=== PATIENT | male | born 1960 | race African-American/Black ===

== ENCOUNTER 2017-01-31 14:17 | Inpatient (IN) | payer OTHER ==
[~2017-01-31] VITALS: Ht 180.3 cm; Wt 110.3 kg
[2017-01-31 15:54] VITALS: BP 135/86
[2017-01-31] MEDS ORDERED: SILD100T PO (16:39)
[2017-01-31] MEDS ORDERED: IBUP-1007 PO (16:39)
[2017-01-31] MEDS ORDERED: ALLO100T PO (16:39)
[2017-01-31] MEDS ORDERED: HYDR25TA9 PO (16:39)
[2017-01-31] MEDS ORDERED: FURO40TA4 PO (16:39)
[2017-01-31] MEDS ORDERED: AMLO10TA2 PO (16:39)
[2017-01-31] MEDS ORDERED: LIDO30CR TP (16:39)
[2017-01-31] MEDS ORDERED: METH-37 PO (16:39)
[2017-01-31] MEDS ORDERED: BUDE10.2 IH (16:39)
[2017-01-31] MEDS ORDERED: POLY255P PO (16:39)
[2017-01-31] MEDS ORDERED: POTA20TA82 PO (16:39)
[2017-01-31] MEDS ORDERED: CALC500T PO (16:39)
[2017-01-31] MEDS ORDERED: NICO-479 BC (16:39)
[2017-01-31] MEDS ORDERED: CETI10TA16 PO (16:39)
[2017-01-31] MEDS ORDERED: DOCU100C28 PO (16:39)
[2017-01-31] MEDS ORDERED: SIMV40TA3 PO (16:39)
[2017-01-31] MEDS ORDERED: METO200T3 PO (16:39)
[2017-01-31] MEDS ORDERED: MULT-208 PO (16:39)
[2017-01-31] MEDS ORDERED: NICO1PAT25 TP (16:39)
[2017-01-31] MEDS ORDERED: SENN8.6T99 PO (16:39)
[2017-01-31] MEDS ORDERED: LEVO100T5 PO (16:39)
[2017-01-31] MEDS ORDERED: RISP2TAB3 PO (16:39)
--- NOTE | 2017-01-31 16:39 | PDOC1 ---
History and Physical Date of Admission Date of Admission DATE: 01/31/17 TIME: 16:37 Identification/Chief Complaint Chief Complaint chest pain Problems: Source Source: Chart review, Patient History of Present Illness History of Present Illness patient was transferred here from the [facility] emergency room. He was there for chest pain, worsening mid sternal chest pain with pressure. pain here He has some known prior CAD, reported 60% LAD lesion in 2008, and echo from 2014 showed and EF of 30% pain better with narcotic meds, nitro given, trop 0.04 there, and potassium was low at 3.0, then 3.2 on recheck, transfer for CV eval, consider stress test he is 40% service [facility], PTSD and joint pain Past Medical History Past Medical History thalassemia, NOS Cardiovascular: CAD, HTN Pulmonary: No pertinent hx GI: No pertinent hx Musculoskeletal: low back pain Rheumatologic: No pertinent hx Infectious disease: No pertinent hx ENT: No pertinent hx Renal/: No pertinent hx Endocrine: No pertinent hx Dermatology: No pertinent hx Family History Family History: Chronic Bronchitis Social History Smoke: 1 pack per day ALCOHOL: rare Current Medications Current Medications Current Medications Morphine Sulfate 4 mg PRN Q2HR PRN IV PAIN; Start 01/31/17 at 16:45; Status UNV Morphine Sulfate (Morphine Ir) 15 mg Q4HRS PRN PO PAIN; Start 01/31/17 at 16:45 ; Status UNV Nitroglycerin (Nitrostat) 0.4 mg PRN Q5MIN PRN SL CHEST PAIN; Start 01/31/17 at 16:45; Status UNV Famotidine (Pepcid) 20 mg BID PO ; Start 01/31/17 at 21:00; Status UNV Aspirin (Tomas Aspirin) 325 mg DAILYWBKFT PO ; Start 02/01/17 at 08:00; Status UNV Enoxaparin Sodium (Lovenox Per Pharmacy Prophylaxis Dosing) 1 each PRN DAILY PRN MC SEE COMMENTS; Start 01/31/17 at 16:45; Status UNV Ondansetron HCl (Zofran Odt) 4 mg PRN Q8HRS PRN PO NAUSEA/VOMITING; Start 01/31 at 16:45; Status UNV Allergies Allergies: Coded Allergies: ceftriaxone (Verified Allergy, Intermediate, 01/31/17) ROS General: No: Chills, Night Sweats, Fatigue, Malaise, Appetite, Other PSYCHOLOGICAL ROS: No: Anxiety, Behavioral Disorder, Concentration difficultie , Decreased libido, Depression, Disorientation, Hallucinations, Hostility, Irritablity, Memory difficulties, Mood Swings, Obsessive thoughts, Physical abuse, Sexual abuse, Sleep disturbances, Suicidal ideation, Other Eyes: No Blurry vision, No Decreased vision, No Double vision, No Dry eyes, No Excessive tearing, No Eye Pain, No Itchy Eyes, No Loss of vision, No Photophobia , No Scotomata, No Uses contacts, No Uses glasses, No Other HEENT: No: Heacaches, Visual Changes, Hearing change, Nasal congestion, Nasal discharge, Oral lesions, Sinus pain, Sore Throat, Epistaxis, Sneezing, Snoring, Tinnitus, Vertigo, Vocal changes, Other Respiratory: YES: Cough, No: Hemoptysis, Orthopnea, Pleuritic Pain, Shortness of breath, SOB with excertion, Sputum Changes, Stridor, Tachypnea, Wheezing, Other Cardiovascular: yes Chest Pain, No Palpitations, No Orthopnea, No Paroxysmal Noc. Dyspnea, No Edema, No Lt Headedness, No Other Gastrointestinal: Yes Abdominal Pain, No Nausea, No Vomiting, No Diarrhea, No Constipation, No Melena, No Hematochezia, No Other Genitourinary: No Dysuria, No Frequency, No Incontinence, No Hematuria, No Retention, No Discharge, No Urgency, No Pain, No Flank Pain, No Other, No , No , No , No , No , No , No Musculoskeletal: Yes Joint Pain, Yes Joint Stiffness, No Gait Disturbance, No Joint Swelling, No Muscle Pain, No Muscular Weakness , No Pain In:, No Swelling In:, No Other Neurological: Yes Gait Disturbance, No Behavorial Changes, No Bowel/Bladder ControlChng, No Confusion, No Dizziness, No Headaches, No Impaired Coord/balance, No Memory Loss, No Numbness/ Tingling, No Seizures, No Speech Problems, No Tremors, No Visual Changes, No Weakness, No Other Skin: No Dry Skin, No Eczema, No Hair Changes, No Lumps, No Mole Changes, No Mottling, No Nail Changes, No Pruritus, No Rash, No Skin Lesion Changes, No Other, No Acne Physical Exam Physical Exam reproducible chest pain to right sternal, "that is the pain" General: Alert, Oriented X3, Cooperative, No acute distress HEENT: Atraumatic, PERRLA, EOMI, Mucous membr. moist/pink Lungs: Clear to auscultation, Normal air movement Heart: S1S2, no gallops, no murmurs Abdomen: Normal bowel sounds, Soft Extremities: No clubbing, No edema, Normal pulses Skin: No breakdown, No significant lesion Neuro: Normal gait, Normal speech, Normal tone, Sensation intact, Cranial nerves 3-12 NL Psych/Mental Status: Mental status NL, Mood NL Vitals Vitals Vital Signs Date Time Temp Pulse Resp B/P (MAP) Pulse Ox O2 Delivery O2 Flow Rate FiO2 01/31/17 15:54 98.2 71 18 135/86 (102) 97 Room Air 98.2 VTE Prophylaxis Ordered VTE Prophylaxis Devices: No VTE Pharmacological Prophylaxi: Yes Assessment/Plan Assessment/Plan chest pain, reproducible, costochondritis, try lidoderm patch the ER doctor at [facility] told me that Mr. Paniagua had extensive cardiac history of EF 30% and LAD 60% blocked from prior , Mr. Paniagua remembers those tests run, but cannot recall those results tobaccoism, obesity, BMI 32 thalassemia, microcytosis w/o anemia ZUHAIR ROSENBERG MD Jan 31, 2017 16:39
[2017-01-31] MEDS ORDERED: ONDANSETRON ODT 4 MG TAB.RAPDIS. PO PRN (16:45)
[2017-01-31] MEDS ORDERED: NITROGLYCERIN SUBLINGUAL 0.4 MG BOTTLE OF 25. SL PRN (16:45)
[2017-01-31] MEDS ORDERED: MORPHINE SULFATE 4 MG/ML DISP.SYRIN. IV PRN (16:45)
[2017-01-31 17:33] LABS: BASO # 0.1 x10^3/uL (0.0-0.2); BASO % 1 % (0-3); EOS % 4 % (0-3); HEMATOCRIT 44.2 % (39.0-53.0); HEMOGLOBIN 14.5 g/dL (13.0-17.5); LYMPH # 2.2 x10^3/uL (1.0-4.8); LYMPH % 34 % (24-48); MEAN CORPUSCULAR HEMOGLOBIN 24 pg (25-35); MEAN CORPUSCULAR HGB CONC 33 g/dL (31-37); MEAN CORPUSCULAR VOLUME 73 fL (79-100); MONO % 7 % (0-9); NEUT % 53 % (31-73); PLATELET COUNT 205 x10^3/uL (140-400); RED BLOOD COUNT 6.05 x10^6/uL (4.30-5.70); RED CELL DISTRIBUTION WIDTH 15.4 % (11.5-14.5); WHITE BLOOD COUNT 6.3 x10^3/uL (4.0-11.0)
[2017-01-31] MEDS ORDERED: HEPARIN for IV BOLUS 10,000 UNIT/10 ML VIAL. IV PRN (17:45)
[2017-01-31] MEDS ORDERED: HEPARIN 25,000UTS/500ML PREMIX 500 ML IV PRN (17:45)
[2017-01-31 17:52] LABS: CALCIUM 9.2 mg/dL (8.5-10.1); CREATININE 1.2 mg/dL (0.7-1.3); POTASSIUM 3.5 mmol/L (3.5-5.1)
[2017-01-31 19:28] VITALS: BP 138/83
[2017-01-31] MEDS ORDERED: ANTI-COAG MONITOR BY PHARMACY. MC PRN (19:30)
[2017-01-31] MEDS ORDERED: METOPROLOL TART IMMED RELEASE 50 MG TABLET. PO SCH (21:00)
[2017-01-31] MEDS: amLODIPine BESYLATE 5 MG TABLET PO SCH (21:13)
[2017-01-31] MEDS: FAMOTIDINE 20 MG TABLET. PO SCH (21:13)
[2017-01-31] MEDS ORDERED: NICOTINE POLACRILEX 2MG GUM PACKAGE of 12. BC PRN (21:15)
[2017-01-31] MEDS ORDERED: NICOTINE 21MG PATCH. TD PRN (21:15)
[2017-01-31] MEDS: LIDOCAINE (700MG/PATCH) PATCH. TD SCH (21:34)
[2017-01-31] MEDS ORDERED: POTASSIUM CHLORIDE 20 MEQ TABLET.ER. PO ONE (22:00)
[2017-01-31 22:38] VITALS: BP 133/83
[2017-02-01 03:08] VITALS: BP 138/96
[2017-02-01 04:46] LABS: BASO # 0.1 x10^3/uL (0.0-0.2); BASO % 1 % (0-3); EOS % 5 % (0-3); HEMATOCRIT 43.3 % (39.0-53.0); HEMOGLOBIN 14.4 g/dL (13.0-17.5); LYMPH # 2.7 x10^3/uL (1.0-4.8); LYMPH % 45 % (24-48); MEAN CORPUSCULAR HEMOGLOBIN 24 pg (25-35); MEAN CORPUSCULAR HGB CONC 33 g/dL (31-37); MEAN CORPUSCULAR VOLUME 73 fL (79-100); MONO % 9 % (0-9); NEUT % 41 % (31-73); PLATELET COUNT 193 x10^3/uL (140-400); RED BLOOD COUNT 5.95 x10^6/uL (4.30-5.70)
[2017-02-01 05:05] LABS: CHOLESTEROL/HDL RATIO 4.8
--- NOTE | 2017-02-01 06:31 | ACF ---
Admission Forms Criteria CHEST PAIN Clinical Indications for Admission to Inpatient Care (Place 'X' for any and all applicable criteria): Admission is indicated for chest pain and ANY ONE of the following(1)(2)(3)(4)(5 ): [ ]I. Angina with acute coronary syndrome (Also use Myocardial Infarction or Angina guideline) [ ]II. Hemodynamic instability [ ]III. Angina needing acute intervention as indicated by ALL of the following( 11)(12): [ ]a) Unstable angina is present as indicated by angina that is ANY ONE of the following: [ ]i) New onset [ ]ii) Nocturnal [ ]iii) Prolonged at rest [ ]iv) Progressive [ ]b) Angina warrants acute intervention as indicated by ANY ONE of the following: [ ]i) Recurrent angina (e.g, not responding as previously to treatment) [ ]ii) Angina at rest or with low-level activities despite initial medical therapy [ ]iii) New or presumably new ST-segment depression on ECG [ ]iv) Signs or symptoms of heart failure (eg, dyspnea, pulmonary edema) [ ]v) New or worsening mitral regurgitation [ ]vi) Hemodynamic instability [ ]vii) Dangerous arrhythmia (eg, sustained ventricular tachycardia) [ ]viii) History of percutaneous coronary intervention within 6 months [ ]ix) History of coronary artery bypass graft surgery [ ]x) BEBETO risk score of 2 or greater[A] [ ]xi) History of Diabetes(14) [ ]xii) High-risk cardiac ischemia findings on noninvasive testing (e.g, echocardiogram, treadmill testing, nuclear scan) [ ]xiii) Chronic renal insufficiency (ie, estimated GFR less than 60 mL/min/1.732m) [ ]xiv) Left ventricular ejection fraction less than 40% [ ]IV. Evidence of NC (eg, cardiac biomarkers positive, ST-segment elevation on ECG) also use Myocardial Infarction Criteria Form. [ ]V. Pulmonary edema [ ]. Respiratory distress [ ]VII. Chest pain indicative of serious diagnosis other than coronary artery disease (eg, aortic dissection) [ ]VIII. Contraindications and/or Inappropriate clinical situations for Observational Care in patients with Chest Pain, when ANY ONE of the following is required: [ ]a) Patient with risk factor for pulmonary embolism, acute coronary syndrome and myocardial infarction (18) [ ]b) Patient with Pulmonary embolism require an average LOS of 4.3 days, therefore emergency department observation management is inappropriate 18,23 [ ]c) Painful condition/s in the elderly, have the highest rate of recidivism after emergency department observation management (10.8%) 20,21,22 [ ]d) Elevated cardiac biomarker requires intensive and exhaustive care (19) [X]IX. General contraindications and/or Inappropriate clinical situations for Observational Care in patients with Chest Pain, when ANY ONE of the following is required: [X]a) Prediction of prolongation of LOS based on ANY ONE of the following may be considered as a contraindication for observational care 2, 3, 4, 5, 6, 7, 8, 9, 10, 11 [ ]i) Age > 65 yrs. [ ]ii) Patient arriving by ambulance [ ]iii) Patient with high acuity [X]iv) Patient requiring vital sign monitoring [ ]v) Patient on IV medication [ ]b) Systolic blood pressures 180mmHg 3,12 [ ]c) Patient with altered mental status including delirium and other alteration of consciousness, (3) [ ]d) Patient whose discharge disposition will be to a correction home or rehabilitation home should not be managed in Emergency Department Observation Unit. CMS rule requires 3 days hospital stay before such placement. 3,13 [ ]e) Patient with failure to thrive due to broad array of etiologies 3,16,17 [ ]f) Inability to ambulate 3,14 Extended stay beyond goal length of stay may be needed for (1)(28): [ ]a) Specific condition diagnosed after evaluation (eg, pulmonary embolism, aortic dissection) [ ]b) Unstable angina [ ]c) Continued suspicion of acute coronary syndrome with inability to complete needed cardiac evaluation (eg, patient clinically unable to undergo stress testing) [ ]d) Myocardial infarction (Contents from ANGINA and CHEST PAIN clinical indications for admission to inpatient care have been integrated in this form) The original [facility] content created by [employer] has been revised. The portions of the content which have been revised are identified through the use of italic text or in bold, and [facility] has neither reviewed nor approved the modified material. All other unmodified content is copyright [facility]. Please see references footnoted in the original [facility] edition 2016 Admission Criteria Met?: Yes MADAI DUNN Feb 01, 2017 06:30
[2017-02-01 07:00] VITALS: BP 134/91
[2017-02-01] MEDS: FAMOTIDINE 20 MG TABLET. PO SCH ×2 (08:39→22:24)
[2017-02-01] MEDS: ASPIRIN 325 MG TABLET PO SCH (08:39)
[2017-02-01] MEDS: amLODIPine BESYLATE 5 MG TABLET PO SCH (08:40)
[2017-02-01] MEDS: LIDOCAINE (700MG/PATCH) PATCH. TD SCH ×2 (08:41→22:24)
[2017-02-01] MEDS ORDERED: ENOXAPARIN 40 MG/0.4 ML SYRINGE. SQ SCH (09:00)
--- NOTE | 2017-02-01 09:51 | PDOC2 ---
CARDIAC CONSULT DATE OF CONSULT Date of Consult DATE: 02/01/17 TIME: 09:49 REASON FOR CONSULT Reason for Consult: angina REFERRING PHYSICIAN Referring Physician: Jovany SOURCE Source: Chart review, Patient HISTORY OF PRESENT ILLNESS HISTORY OF PRESENT ILLNESS This is a pleasant 57 yo AA male admitted for complains of chest pain. Initially he was at the [facility] ED but because they could not placed him inpt, he was then transferred to [facility]. Reports that prior to this admission, he has not been having any cardiac symptoms. He does work with [employer] requiring strenuous exertion. No OAKES, CP, SOA till yesterday. This lasted about 3 hours before getting better with the help of NTG x1. Positive for chest tightness, nausea, and SOA which he currently does not have and no recurrence since alleviation at the [facility]. He does admit using cocaine, smoking it with last use yesterday. He is known for cardiomyopathy, CHF, polysubstance abuse. PAST MEDICAL HISTORY Cardiovascular: CAD, CHF, HTN, Hyperlipidemia, Other (cardiomyopathy) Pulmonary: COPD CENTRAL NERVOUS SYSTEM: CVA (remotely; no residual) GI: GERD, Hemorrhoids, Other (rectal fistula; IBS) Psych: Anxiety, Depression, Other (PTSD) Musculoskeletal: low back pain, Osteoarthritis Rheumatologic: No pertinent hx Infectious disease: No pertinent hx ENT: No pertinent hx Renal/: Chronic renal insuff Endocrine: Hypothyroidism Dermatology: No pertinent hx PAST SURGICAL HISTORY Past Surgical History: Hernia Repair (right inguinal), Total hip replacement ( right), Other ([facility] bewtween 2-5 yrs unknown details) FAMILY HISTORY Family History: Hypertension SOCIAL HISTORY Smoke: 1 pack per day (>30 yrs) ALCOHOL: occassional Drugs: Cocaine, Marijuana Lives: Alone CURRENT MEDICATIONS CURRENT MEDICATIONS Current Medications Medications (Trade) Dose Ordered Sig/Eliana Route PRN Reason Start Time Stop Time Status Last Admin Dose Admin Famotidine (Pepcid) 20 mg BID PO 01/31/17 21:00 02/01/17 08:39 Aspirin (Tomas Aspirin) 325 mg DAILYWBKFT PO 02/01/17 08:00 02/01/17 08:39 Amlodipine Besylate (Norvasc) 5 mg DAILY PO 01/31/17 19:00 02/01/17 08:40 Metoprolol Tartrate (Lopressor) 50 mg BID PO 01/31/17 21:00 01/31/17 21:13 Heparin Sodium (Porcine) (Heparin Sodium) 2,700 unit PRN Q6HRS PRN IV FOR UFH LEVEL LESS THAN 0.2 01/31/17 17:45 02/01/17 05:18 Lidocaine (Lidoderm) 1 patch DAILY TD 01/31/17 21:30 02/01/17 08:41 Potassium Chloride (Klor-Con) 20 meq 1X ONCE PO 01/31/17 22:00 01/31/17 22:01 DC 01/31/17 21:33 ALLERGIES ALLERGIES: Coded Allergies: ceftriaxone (Verified Allergy, Intermediate, 01/31/17) ROS Review of System 14 point ROS evaluated with pertinent positives noted per HPI PHYSICAL EXAM General: Alert, Oriented X3, Cooperative Heart: Regular rate (SR/SB), Normal S1, Normal S2, Other (3/6 systolic murmur to LLS border;S4) Abdomen: Soft, No tenderness Extremities: No cyanosis, No edema Skin: No breakdown, No significant lesion Neuro: Normal speech, Sensation intact Psych/Mental Status: Mental status NL, Mood NL MUSCULOSKELETAL: Osteoarthritic changes both hands VITALS VITALS Vital Signs Date Time Temp Pulse Resp B/P (MAP) Pulse Ox O2 Delivery O2 Flow Rate FiO2 02/01/17 08:40 59 134/91 02/01/17 08:10 Room Air 02/01/17 07:00 97.8 59 95 97.8 LABS Lab: Laboratory Tests Test 01/31/17 17:10 02/01/17 03:40 White Blood Count 6.3 x10^3/uL (4.0-11.0) 6.0 x10^3/uL (4.0-11.0) Red Blood Count 6.05 x10^6/uL (4.30-5.70) 5.95 x10^6/uL (4.30-5.70) Hemoglobin 14.5 g/dL (13.0-17.5) 14.4 g/dL (13.0-17.5) Hematocrit 44.2 % (39.0-53.0) 43.3 % (39.0-53.0) Mean Corpuscular Volume 73 fL (79-100) 73 fL (79-100) Mean Corpuscular Hemoglobin 24 pg (25-35) 24 pg (25-35) Mean Corpuscular Hemoglobin Concent 33 g/dL (31-37) 33 g/dL (31-37) Red Cell Distribution Width 15.4 % (11.5-14.5) 16.0 % (11.5-14.5) Platelet Count 205 x10^3/uL (140-400) 193 x10^3/uL (140-400) Neutrophils (%) (Auto) 53 % (31-73) 41 % (31-73) Lymphocytes (%) (Auto) 34 % (24-48) 45 % (24-48) Monocytes (%) (Auto) 7 % (0-9) 9 % (0-9) Eosinophils (%) (Auto) 4 % (0-3) 5 % (0-3) Basophils (%) (Auto) 1 % (0-3) 1 % (0-3) Neutrophils # (Auto) 3.4 x10^3uL (1.8-7.7) 2.5 x10^3uL (1.8-7.7) Lymphocytes # (Auto) 2.2 x10^3/uL (1.0-4.8) 2.7 x10^3/uL (1.0-4.8) Monocytes # (Auto) 0.5 x10^3/uL (0.0-1.1) 0.5 x10^3/uL (0.0-1.1) Eosinophils # (Auto) 0.3 x10^3/uL (0.0-0.7) 0.3 x10^3/uL (0.0-0.7) Basophils # (Auto) 0.1 x10^3/uL (0.0-0.2) 0.1 x10^3/uL (0.0-0.2) Sodium Level 144 mmol/L (136-145) 144 mmol/L (136-145) Potassium Level 3.5 mmol/L (3.5-5.1) 3.5 mmol/L (3.5-5.1) Chloride Level 106 mmol/L (98-107) 106 mmol/L (98-107) Carbon Dioxide Level 29 mmol/L (21-32) 28 mmol/L (21-32) Anion Gap 9 (6-14) 10 (6-14) Blood Urea Nitrogen 15 mg/dL (8-26) 17 mg/dL (8-26) Creatinine 1.2 mg/dL (0.7-1.3) 1.3 mg/dL (0.7-1.3) Estimated GFR (Cockcroft-Gault) 75.0 68.4 Glucose Level 105 mg/dL (70-99) 94 mg/dL (70-99) Calcium Level 9.2 mg/dL (8.5-10.1) 9.0 mg/dL (8.5-10.1) Magnesium Level 2.1 mg/dL (1.8-2.4) Troponin I Quantitative < 0.017 ng/mL (0.000-0.055) 0.027 ng/mL (0.000-0.055) Heparin Anti-Xa Act, Unfractionated < 0.10 IU/mL (0.30-0.70) Triglycerides Level 55 mg/dL (0-150) Cholesterol Level 162 mg/dL (0-200) LDL Cholesterol, Calculated 117 mg/dL (0-100) VLDL Cholesterol, Calculated 11 mg/dL (0-40) Non-HDL Cholesterol Calculated 128 mg/dL (0-129) HDL Cholesterol 34 mg/dL (40-60) Cholesterol/HDL Ratio 4.8 ASSESSMENT/PLAN ASSESSMENT/PLAN 1. Chest pain: Possible vasopasm from cocaine. troponin series normal, EKG SR with diffuse nonspecific t wave changes. Peaked trop 0.04 2. Chronic systolic CHF: compensated 3. Cardiomyopathy: (not new) likely worsened by continued cocaine use 4. Polysubstance abuse: marijuana with daily use of cocaine with last use yesterday. Per review multiple relapse from this. 5. Polycythemia 6. HLP 7. HTN: controlled 8. COPD/tobaccoism/KAYLA 9. CAD 10. Asymptomatic Sinus Bradycardia 11. Valvular insufficiency Recommendations 1. Abstinence from cocaine 2. No BB 3. TTE 4. Obtain cardiology records 5. Norvasc, imdur. Will need ACEi ot ARB pending BP response. 6. Will consider MPI in 24-48 hours after cardiology records reviewed Problems: ALEN ALBRECHT APRN Feb 01, 2017 09:51
[2017-02-01 11:00] VITALS: BP 157/111
--- NOTE | 2017-02-01 11:00 | EKG ---
[facility] [address] [place] [address] Test Date: 2017-02-01 Test Time: 10:15:46 Pat Name: PARKER ABDALLA Department: Room: 205 1 Gender: M [employer]: : 1960 Requested By: ALEN ALBRECHT Order Number: [id number] Reading MD: Measurements Intervals [place] Rate: 60 P: 0 SD: 208 QRS: -46 QRSD: 100 T: -147 QT: 500 QTc: 505 Interpretive Statements SINUS RHYTHM ABNORMAL LEFT AXIS DEVIATION LEFT ANTERIOR FASCICULAR BLOCK CONSIDER LEFT VENTRICULAR HYPERTROPHY T ABNORMALITY IN ANTERIOR LEADS LATERAL LEADS INFEROLATERAL LEADS PROLONGED QT ABNORMAL ECG RI6.01 No previous ECG available for comparison
[2017-02-01] MEDS: ISOSORBIDE MONONITRATE ER 30 MG TAB.ER.24H PO SCH (11:26)
[2017-02-01 12:38] LABS: ALBUMIN 3.5 g/dL (3.4-5.0); ALBUMIN/GLOBULIN RATIO 1.2 (1.0-1.7); CALCIUM 8.4 mg/dL (8.5-10.1); CREATININE 1.3 mg/dL (0.7-1.3); GFR 68.4; POTASSIUM 3.7 mmol/L (3.5-5.1); TOTAL BILIRUBIN 0.3 mg/dL (0.2-1.0); TOTAL PROTEIN 6.5 g/dL (6.4-8.2)
--- NOTE | 2017-02-01 12:53 | PDOC ---
PROGRESS NOTES Chief Complaint Chief Complaint Chest pain:unstable angina with Possible vasopasm from cocaine ? Known chronic systolic CHF EF 30% 2 years ago Cardiomyopathy Polysubstance abuse: marijuana with daily use of cocaine with last use yesterday. thasassemia HLP accelerated HTN COPD/tobaccoism/KAYLA h/o CAD wo PCI Sinus Bradycardia Valvular insufficiency tobaccoism obesity plan; fu with card, on amlodipine, no BB TTE today may need MPI DVT ppx History of Present Illness History of Present Illness no chest pain today Vitals Vitals Vital Signs Date Time Temp Pulse Resp B/P (MAP) Pulse Ox O2 Delivery O2 Flow Rate FiO2 02/01/17 11:26 60 175/121 02/01/17 11:00 98.0 17 96 Room Air 98.0 Physical Exam General: Alert, Oriented X3, Cooperative, No acute distress Heart: Regular rate, Normal S1, Normal S2 Lungs: Clear Abdomen: Normal bowel sounds, Soft Extremities: No clubbing, No edema, Normal pulses Skin: No breakdown, No significant lesion Labs LABS Laboratory Tests Test 01/31/17 17:10 02/01/17 03:40 White Blood Count 6.3 x10^3/uL (4.0-11.0) 6.0 x10^3/uL (4.0-11.0) Red Blood Count 6.05 x10^6/uL (4.30-5.70) 5.95 x10^6/uL (4.30-5.70) Hemoglobin 14.5 g/dL (13.0-17.5) 14.4 g/dL (13.0-17.5) Hematocrit 44.2 % (39.0-53.0) 43.3 % (39.0-53.0) Mean Corpuscular Volume 73 fL (79-100) 73 fL (79-100) Mean Corpuscular Hemoglobin 24 pg (25-35) 24 pg (25-35) Mean Corpuscular Hemoglobin Concent 33 g/dL (31-37) 33 g/dL (31-37) Red Cell Distribution Width 15.4 % (11.5-14.5) 16.0 % (11.5-14.5) Platelet Count 205 x10^3/uL (140-400) 193 x10^3/uL (140-400) Neutrophils (%) (Auto) 53 % (31-73) 41 % (31-73) Lymphocytes (%) (Auto) 34 % (24-48) 45 % (24-48) Monocytes (%) (Auto) 7 % (0-9) 9 % (0-9) Eosinophils (%) (Auto) 4 % (0-3) 5 % (0-3) Basophils (%) (Auto) 1 % (0-3) 1 % (0-3) Neutrophils # (Auto) 3.4 x10^3uL (1.8-7.7) 2.5 x10^3uL (1.8-7.7) Lymphocytes # (Auto) 2.2 x10^3/uL (1.0-4.8) 2.7 x10^3/uL (1.0-4.8) Monocytes # (Auto) 0.5 x10^3/uL (0.0-1.1) 0.5 x10^3/uL (0.0-1.1) Eosinophils # (Auto) 0.3 x10^3/uL (0.0-0.7) 0.3 x10^3/uL (0.0-0.7) Basophils # (Auto) 0.1 x10^3/uL (0.0-0.2) 0.1 x10^3/uL (0.0-0.2) Sodium Level 144 mmol/L (136-145) 145 mmol/L (136-145) Potassium Level 3.5 mmol/L (3.5-5.1) 3.7 mmol/L (3.5-5.1) Chloride Level 106 mmol/L (98-107) 107 mmol/L (98-107) Carbon Dioxide Level 29 mmol/L (21-32) 27 mmol/L (21-32) Anion Gap 9 (6-14) 11 (6-14) Blood Urea Nitrogen 15 mg/dL (8-26) 19 mg/dL (8-26) Creatinine 1.2 mg/dL (0.7-1.3) 1.3 mg/dL (0.7-1.3) Estimated GFR (Cockcroft-Gault) 75.0 68.4 Glucose Level 105 mg/dL (70-99) 90 mg/dL (70-99) Calcium Level 9.2 mg/dL (8.5-10.1) 8.4 mg/dL (8.5-10.1) Magnesium Level 2.1 mg/dL (1.8-2.4) Troponin I Quantitative < 0.017 ng/mL (0.000-0.055) 0.027 ng/mL (0.000-0.055) Heparin Anti-Xa Act, Unfractionated < 0.10 IU/mL (0.30-0.70) BUN/Creatinine Ratio 15 (6-20) Total Bilirubin 0.3 mg/dL (0.2-1.0) Aspartate Amino Transf (AST/SGOT) 17 U/L (15-37) Alanine Aminotransferase (ALT/SGPT) 17 U/L (16-63) Alkaline Phosphatase 64 U/L (46-116) Total Protein 6.5 g/dL (6.4-8.2) Albumin 3.5 g/dL (3.4-5.0) Albumin/Globulin Ratio 1.2 (1.0-1.7) Triglycerides Level 55 mg/dL (0-150) Cholesterol Level 162 mg/dL (0-200) LDL Cholesterol, Calculated 117 mg/dL (0-100) VLDL Cholesterol, Calculated 11 mg/dL (0-40) Non-HDL Cholesterol Calculated 128 mg/dL (0-129) HDL Cholesterol 34 mg/dL (40-60) Cholesterol/HDL Ratio 4.8 Thyroid Stimulating Hormone (TSH) 2.723 uIU/mL (0.358-3.74) Review of Systems Review of Systems no fever, chills, chest pain or sob Comment Review of Relevant I have reviewed the following items sadia (where applicable) has been applied. Labs Laboratory Tests Test 01/31/17 17:10 02/01/17 03:40 White Blood Count 6.3 x10^3/uL (4.0-11.0) 6.0 x10^3/uL (4.0-11.0) Red Blood Count 6.05 x10^6/uL (4.30-5.70) 5.95 x10^6/uL (4.30-5.70) Hemoglobin 14.5 g/dL (13.0-17.5) 14.4 g/dL (13.0-17.5) Hematocrit 44.2 % (39.0-53.0) 43.3 % (39.0-53.0) Mean Corpuscular Volume 73 fL (79-100) 73 fL (79-100) Mean Corpuscular Hemoglobin 24 pg (25-35) 24 pg (25-35) Mean Corpuscular Hemoglobin Concent 33 g/dL (31-37) 33 g/dL (31-37) Red Cell Distribution Width 15.4 % (11.5-14.5) 16.0 % (11.5-14.5) Platelet Count 205 x10^3/uL (140-400) 193 x10^3/uL (140-400) Neutrophils (%) (Auto) 53 % (31-73) 41 % (31-73) Lymphocytes (%) (Auto) 34 % (24-48) 45 % (24-48) Monocytes (%) (Auto) 7 % (0-9) 9 % (0-9) Eosinophils (%) (Auto) 4 % (0-3) 5 % (0-3) Basophils (%) (Auto) 1 % (0-3) 1 % (0-3) Neutrophils # (Auto) 3.4 x10^3uL (1.8-7.7) 2.5 x10^3uL (1.8-7.7) Lymphocytes # (Auto) 2.2 x10^3/uL (1.0-4.8) 2.7 x10^3/uL (1.0-4.8) Monocytes # (Auto) 0.5 x10^3/uL (0.0-1.1) 0.5 x10^3/uL (0.0-1.1) Eosinophils # (Auto) 0.3 x10^3/uL (0.0-0.7) 0.3 x10^3/uL (0.0-0.7) Basophils # (Auto) 0.1 x10^3/uL (0.0-0.2) 0.1 x10^3/uL (0.0-0.2) Sodium Level 144 mmol/L (136-145) 145 mmol/L (136-145) Potassium Level 3.5 mmol/L (3.5-5.1) 3.7 mmol/L (3.5-5.1) Chloride Level 106 mmol/L (98-107) 107 mmol/L (98-107) Carbon Dioxide Level 29 mmol/L (21-32) 27 mmol/L (21-32) Anion Gap 9 (6-14) 11 (6-14) Blood Urea Nitrogen 15 mg/dL (8-26) 19 mg/dL (8-26) Creatinine 1.2 mg/dL (0.7-1.3) 1.3 mg/dL (0.7-1.3) Estimated GFR (Cockcroft-Gault) 75.0 68.4 Glucose Level 105 mg/dL (70-99) 90 mg/dL (70-99) Calcium Level 9.2 mg/dL (8.5-10.1) 8.4 mg/dL (8.5-10.1) Magnesium Level 2.1 mg/dL (1.8-2.4) Troponin I Quantitative < 0.017 ng/mL (0.000-0.055) 0.027 ng/mL (0.000-0.055) Heparin Anti-Xa Act, Unfractionated < 0.10 IU/mL (0.30-0.70) BUN/Creatinine Ratio 15 (6-20) Total Bilirubin 0.3 mg/dL (0.2-1.0) Aspartate Amino Transf (AST/SGOT) 17 U/L (15-37) Alanine Aminotransferase (ALT/SGPT) 17 U/L (16-63) Alkaline Phosphatase 64 U/L (46-116) Total Protein 6.5 g/dL (6.4-8.2) Albumin 3.5 g/dL (3.4-5.0) Albumin/Globulin Ratio 1.2 (1.0-1.7) Triglycerides Level 55 mg/dL (0-150) Cholesterol Level 162 mg/dL (0-200) LDL Cholesterol, Calculated 117 mg/dL (0-100) VLDL Cholesterol, Calculated 11 mg/dL (0-40) Non-HDL Cholesterol Calculated 128 mg/dL (0-129) HDL Cholesterol 34 mg/dL (40-60) Cholesterol/HDL Ratio 4.8 Thyroid Stimulating Hormone (TSH) 2.723 uIU/mL (0.358-3.74) Laboratory Tests Test 01/31/17 17:10 02/01/17 03:40 White Blood Count 6.3 x10^3/uL (4.0-11.0) 6.0 x10^3/uL (4.0-11.0) Red Blood Count 6.05 x10^6/uL (4.30-5.70) 5.95 x10^6/uL (4.30-5.70) Hemoglobin 14.5 g/dL (13.0-17.5) 14.4 g/dL (13.0-17.5) Hematocrit 44.2 % (39.0-53.0) 43.3 % (39.0-53.0) Mean Corpuscular Volume 73 fL (79-100) 73 fL (79-100) Mean Corpuscular Hemoglobin 24 pg (25-35) 24 pg (25-35) Mean Corpuscular Hemoglobin Concent 33 g/dL (31-37) 33 g/dL (31-37) Red Cell Distribution Width 15.4 % (11.5-14.5) 16.0 % (11.5-14.5) Platelet Count 205 x10^3/uL (140-400) 193 x10^3/uL (140-400) Neutrophils (%) (Auto) 53 % (31-73) 41 % (31-73) Lymphocytes (%) (Auto) 34 % (24-48) 45 % (24-48) Monocytes (%) (Auto) 7 % (0-9) 9 % (0-9) Eosinophils (%) (Auto) 4 % (0-3) 5 % (0-3) Basophils (%) (Auto) 1 % (0-3) 1 % (0-3) Neutrophils # (Auto) 3.4 x10^3uL (1.8-7.7) 2.5 x10^3uL (1.8-7.7) Lymphocytes # (Auto) 2.2 x10^3/uL (1.0-4.8) 2.7 x10^3/uL (1.0-4.8) Monocytes # (Auto) 0.5 x10^3/uL (0.0-1.1) 0.5 x10^3/uL (0.0-1.1) Eosinophils # (Auto) 0.3 x10^3/uL (0.0-0.7) 0.3 x10^3/uL (0.0-0.7) Basophils # (Auto) 0.1 x10^3/uL (0.0-0.2) 0.1 x10^3/uL (0.0-0.2) Sodium Level 144 mmol/L (136-145) 145 mmol/L (136-145) Potassium Level 3.5 mmol/L (3.5-5.1) 3.7 mmol/L (3.5-5.1) Chloride Level 106 mmol/L (98-107) 107 mmol/L (98-107) Carbon Dioxide Level 29 mmol/L (21-32) 27 mmol/L (21-32) Anion Gap 9 (6-14) 11 (6-14) Blood Urea Nitrogen 15 mg/dL (8-26) 19 mg/dL (8-26) Creatinine 1.2 mg/dL (0.7-1.3) 1.3 mg/dL (0.7-1.3) Estimated GFR (Cockcroft-Gault) 75.0 68.4 Glucose Level 105 mg/dL (70-99) 90 mg/dL (70-99) Calcium Level 9.2 mg/dL (8.5-10.1) 8.4 mg/dL (8.5-10.1) Magnesium Level 2.1 mg/dL (1.8-2.4) Troponin I Quantitative < 0.017 ng/mL (0.000-0.055) 0.027 ng/mL (0.000-0.055) Heparin Anti-Xa Act, Unfractionated < 0.10 IU/mL (0.30-0.70) BUN/Creatinine Ratio 15 (6-20) Total Bilirubin 0.3 mg/dL (0.2-1.0) Aspartate Amino Transf (AST/SGOT) 17 U/L (15-37) Alanine Aminotransferase (ALT/SGPT) 17 U/L (16-63) Alkaline Phosphatase 64 U/L (46-116) Total Protein 6.5 g/dL (6.4-8.2) Albumin 3.5 g/dL (3.4-5.0) Albumin/Globulin Ratio 1.2 (1.0-1.7) Triglycerides Level 55 mg/dL (0-150) Cholesterol Level 162 mg/dL (0-200) LDL Cholesterol, Calculated 117 mg/dL (0-100) VLDL Cholesterol, Calculated 11 mg/dL (0-40) Non-HDL Cholesterol Calculated 128 mg/dL (0-129) HDL Cholesterol 34 mg/dL (40-60) Cholesterol/HDL Ratio 4.8 Thyroid Stimulating Hormone (TSH) 2.723 uIU/mL (0.358-3.74) Medications Current Medications Morphine Sulfate 4 mg PRN Q2HR PRN IV PAIN; Start 01/31/17 at 16:45 Morphine Sulfate (Morphine Ir) 15 mg Q4HRS PRN PO PAIN; Start 01/31/17 at 16:45 Nitroglycerin (Nitrostat) 0.4 mg PRN Q5MIN PRN SL CHEST PAIN; Start 01/31/17 at 16:45 Famotidine (Pepcid) 20 mg BID PO Last administered on 02/01/17 08:39; Start at 21:00 Aspirin (Tomas Aspirin) 325 mg DAILYWBKFT PO Last administered on 02/01/17 08: 39; Start 02/01/17 at 08:00 Enoxaparin Sodium (Lovenox Per Pharmacy Prophylaxis Dosing) 1 each PRN DAILY PRN MC SEE COMMENTS; Start 01/31/17 at 16:45; Stop 01/31/17 at 19:21; Status DC Ondansetron HCl (Zofran Odt) 4 mg PRN Q8HRS PRN PO NAUSEA/VOMITING; Start 01/31 at 16:45 Enoxaparin Sodium (Lovenox 40mg Syringe) 40 mg Q24H SQ ; Start 02/01/17 at 09:00 ; Stop 02/01/17 at 09:00; Status DC Amlodipine Besylate (Norvasc) 5 mg DAILY PO Last administered on 02/01/17 08: 40; Start 01/31/17 at 19:00; Stop 02/01/17 at 10:25; Status DC Metoprolol Tartrate (Lopressor) 50 mg BID PO Last administered on 01/31/17 21: 13; Start 01/31/17 at 21:00; Stop 02/01/17 at 10:25; Status DC Heparin Sodium/ Dextrose 500 ml @ 0 mls/hr CONT PRN IV SEE I/O RECORD; Start at 17:45; Stop 02/01/17 at 10:50; Status DC Heparin Sodium (Porcine) (Heparin Sodium) 2,700 unit PRN Q6HRS PRN IV FOR UFH LEVEL LESS THAN 0.2 Last administered on 02/01/17 05:18; Start 01/31/17 at 17: 45; Stop 02/01/17 at 10:50; Status DC Info (Anti-Coagulation Monitoring By Pharmacy) 1 each PRN DAILY PRN MC SEE COMMENTS Last administered on 02/01/17 10:12; Start 01/31/17 at 19:30 Nicotine (Nicoderm Cq 21mg) 1 patch PRN DAILY PRN TD SMOKING CESSATION; Start 01/31/17 at 21:15 Nicotine Polacrilex (Nicorette Gum) 1 each PRN Q1HR PRN BC SMOKING CESSATION; Start 01/31/17 at 21:15 Lidocaine (Lidoderm) 1 patch DAILY TD Last administered on 02/01/17 08:41; Start 01/31/17 at 21:30 Potassium Chloride (Klor-Con) 20 meq 1X ONCE PO Last administered on 21:33; Start 01/31/17 at 22:00; Stop 01/31/17 at 22:01; Status DC Amlodipine Besylate (Norvasc) 10 mg DAILY PO ; Start 02/02/17 at 09:00 Isosorbide Mononitrate (Imdur) 30 mg DAILY PO ; Start 02/02/17 at 09:00; Stop at 09:00; Status DC Isosorbide Mononitrate (Imdur) 30 mg DAILY PO Last administered on 02/01/17 11 :26; Start 02/01/17 at 11:06 Active Scripts Active Reported Calcium Carbonate 500 Mg Tablet 500 Mg PO TIDWMEALS Potassium Chloride 20 Meq Tablet.er 20 Meq PO DAILY NICODERM CQ 14mg (Nicotine) 1 Each Patch.td24 1 Patch TP DAILY Nicotine Lozenge (Nicotine Polacrilex) 2 Mg Lozenge 2 Mg BC PRN Q1HR PRN Multi-Day Vitamins (Multivitamin) 1 Each Tablet 1 Tab PO DAILY Simvastatin 40 Mg Tablet 0.5 Tab PO QHS Viagra (Sildenafil Citrate) 100 Mg Tablet 100 Mg PO ONCE One tablet as directed by mouth as needed for erectile dysfuntion. One hour before sexual encounter. No more than 1 dose per day. No more than 4 doses in 30 days. Senokot (Sennosides) 8.6 Mg Tablet 8.6 Mg PO PRN PRN Risperidone 2 Mg Tablet 1 Tab PO QHS half tablet to 1 tablet at HS, alternating days Polyethylene Glycol 3350 255 Gm Powder 17 Gm PO DAILY Metoprolol Succinate ( Xl ) (Metoprolol Succinate) 200 Mg Tab.er.24h 1 Tab PO DAILY Robaxin (Methocarbamol) 500 Mg Tablet 1 Tab PO PRN TID PRN Lidocaine-Prilocaine Cream (Lidocaine/Prilocaine) 30 Gm Cream..g. 1 Lolis TP TID PRN Levothyroxine Sodium 100 Mcg Tablet 1 Tab PO DAILY Ibuprofen 600 Mg Tablet 600 Mg PO PRN TID PRN Hydrochlorothiazide Tablet (Hydrochlorothiazide) 25 Mg Tablet 1 Tab PO DAILY Furosemide 40 Mg Tablet 1 Tab PO DAILY Docusate Sodium 100 Mg Capsule 1 Cap PO DAILY Cetirizine Hcl 10 Mg Tablet 1 Tab PO DAILY Symbicort 160-4.5 Mcg Inhaler (Budesonide/Formoterol Fumarate) 10.2 Gm Hfa.aer.ad 2 Puff IH BID Amlodipine Besylate 10 Mg Tablet 10 Mg PO DAILY Allopurinol 100 Mg Tablet 2 Tab PO DAILY Vitals/I & O Vital Sign - Last 24 Hours 01/31/17 01/31/17 01/31/17 01/31/17 15:54 19:28 19:30 21:13 Temp 98.2 98.1 98.2 98.1 Pulse 71 73 73 Resp 18 18 B/P (MAP) 135/86 (102) 138/83 (101) 138/83 Pulse Ox 97 96 O2 Delivery Room Air Room Air Room Air 01/31/17 01/31/17 02/01/17 02/01/17 21:13 22:38 03:08 07:00 Temp 98.6 98.2 97.8 98.6 98.2 97.8 Pulse 73 69 66 59 Resp 18 18 59 B/P (MAP) 138/83 133/83 (100) 138/96 (110) 134/91 (105) Pulse Ox 96 95 95 O2 Delivery Room Air Room Air Room Air 02/01/17 02/01/17 02/01/17 02/01/17 08:10 08:40 11:00 11:26 Temp 98.0 98.0 Pulse 59 64 60 Resp 17 B/P (MAP) 134/91 157/111 (126) 175/121 Pulse Ox 96 O2 Delivery Room Air Room Air Intake and Output 01/31/17 01/31/17 02/01/17 15:00 23:00 07:00 Intake Total 720 ml 500 ml Output Total 250 ml 350 ml Balance 470 ml 150 ml CARINA GARZA MD Feb 01, 2017 12:53
[2017-02-01] MEDS ORDERED: hydrALAZINE 20 MG/ML VIAL. IVP PRN (13:00)
[2017-02-01] MEDS ORDERED: MORPHINE SULFATE 2 MG/ML DISP.SYRIN. IV PRN (13:00)
[2017-02-01] MEDS ORDERED: DOCUSATE SODIUM 100 MG CAPSULE. PO PRN (13:00)
[2017-02-01] MEDS ORDERED: ACETAMINOPHEN 325 MG TABLET. PO PRN (13:00)
[2017-02-01] MEDS ORDERED: ONDANSETRON PF 4 MG/2 ML VIAL. IV PRN (13:00)
[2017-02-01] MEDS: NICOTINE 21MG PATCH. TD SCH ×2 (13:38→22:23)
[2017-02-01] MEDS ORDERED: amLODIPine BESYLATE 5 MG TABLET PO ONE (14:00)
[2017-02-01] MEDS: LOSARTAN POTASSIUM 50 MG TABLET. PO SCH (14:03)
[2017-02-01 15:00] VITALS: BP 134/80
[2017-02-01] MEDS: traMADol 50 MG TABLET PO PRN ×2 (17:28→23:40)
[2017-02-01 19:25] VITALS: BP 106/69
[2017-02-01] MEDS: MORPHINE IR 15 MG TABLET PO PRN ×2 (19:52→23:40)
[2017-02-01] MEDS: ATORVASTATIN CALCIUM 20 MG TABLET PO SCH (22:24)
[2017-02-01 23:30] VITALS: BP 125/74
[2017-02-02 03:20] VITALS: BP 148/92
[2017-02-02 04:16] LABS: BASO # 0.1 x10^3/uL (0.0-0.2); BASO % 1 % (0-3); EOS % 5 % (0-3); HEMATOCRIT 41.7 % (39.0-53.0); HEMOGLOBIN 13.2 g/dL (13.0-17.5); LYMPH # 2.1 x10^3/uL (1.0-4.8); LYMPH % 42 % (24-48); MEAN CORPUSCULAR HEMOGLOBIN 24 pg (25-35); MEAN CORPUSCULAR HGB CONC 32 g/dL (31-37); MEAN CORPUSCULAR VOLUME 75 fL (79-100); MONO % 9 % (0-9); NEUT % 43 % (31-73); PLATELET COUNT 180 x10^3/uL (140-400); RED BLOOD COUNT 5.58 x10^6/uL (4.30-5.70); RED CELL DISTRIBUTION WIDTH 15.7 % (11.5-14.5)
[2017-02-02 04:22] LABS: CALCIUM 8.4 mg/dL (8.5-10.1); CREATININE 1.2 mg/dL (0.7-1.3); POTASSIUM 3.6 mmol/L (3.5-5.1)
[2017-02-02 07:02] VITALS: BP 143/96
[2017-02-02] MEDS: ASPIRIN 325 MG TABLET PO SCH (08:50)
[2017-02-02] MEDS: LOSARTAN POTASSIUM 50 MG TABLET. PO SCH (08:50)
[2017-02-02] MEDS: FAMOTIDINE 20 MG TABLET. PO SCH ×2 (08:50→20:27)
[2017-02-02] MEDS: ISOSORBIDE MONONITRATE ER 30 MG TAB.ER.24H PO SCH (08:52)
[2017-02-02] MEDS: amLODIPine BESYLATE 5 MG TABLET PO SCH (08:53)
[2017-02-02] MEDS ORDERED: ISOSORBIDE MONONITRATE ER 30 MG TAB.ER.24H PO SCH (09:00)
[2017-02-02 11:00] VITALS: BP 160/95
[2017-02-02] MEDS: LEVOTHYROXINE 100 MCG TABLET PO SCH (11:31)
[2017-02-02] MEDS: traMADol 50 MG TABLET PO PRN ×2 (12:08→20:27)
[2017-02-02] MEDS: MORPHINE IR 15 MG TABLET PO PRN ×2 (12:09→20:26)
--- NOTE | 2017-02-02 13:09 | PDOC ---
CARDIO Progress Notes Date and Time Date of Service 02/02/2017 Time of Evaluation 1150 Subjective Subjective: No Chest Pain, No shortness of breath, No Palpitations, No Dizziness, Other (complians of chest tightness last night, currently has mild WITT. ) Vitals Vitals Vital Signs Date Time Temp Pulse Resp B/P (MAP) Pulse Ox O2 Delivery O2 Flow Rate FiO2 02/02/17 12:09 Room Air 02/02/17 11:00 97.6 67 18 160/95 (116) 97 97.6 Weight Weight [ ] Input and Output Intake and Output Intake and Output 02/02/17 06:59 Intake Total 610 ml Balance 610 ml Intake Oral 610 ml # Voids 2 Laboratory Labs Laboratory Tests Test 02/02/17 03:20 White Blood Count 5.0 x10^3/uL (4.0-11.0) Red Blood Count 5.58 x10^6/uL (4.30-5.70) Hemoglobin 13.2 g/dL (13.0-17.5) Hematocrit 41.7 % (39.0-53.0) Mean Corpuscular Volume 75 fL (79-100) Mean Corpuscular Hemoglobin 24 pg (25-35) Mean Corpuscular Hemoglobin Concent 32 g/dL (31-37) Red Cell Distribution Width 15.7 % (11.5-14.5) Platelet Count 180 x10^3/uL (140-400) Neutrophils (%) (Auto) 43 % (31-73) Lymphocytes (%) (Auto) 42 % (24-48) Monocytes (%) (Auto) 9 % (0-9) Eosinophils (%) (Auto) 5 % (0-3) Basophils (%) (Auto) 1 % (0-3) Neutrophils # (Auto) 2.1 x10^3uL (1.8-7.7) Lymphocytes # (Auto) 2.1 x10^3/uL (1.0-4.8) Monocytes # (Auto) 0.4 x10^3/uL (0.0-1.1) Eosinophils # (Auto) 0.2 x10^3/uL (0.0-0.7) Basophils # (Auto) 0.1 x10^3/uL (0.0-0.2) Sodium Level 144 mmol/L (136-145) Potassium Level 3.6 mmol/L (3.5-5.1) Chloride Level 108 mmol/L (98-107) Carbon Dioxide Level 30 mmol/L (21-32) Anion Gap 6 (6-14) Blood Urea Nitrogen 19 mg/dL (8-26) Creatinine 1.2 mg/dL (0.7-1.3) Estimated GFR (Cockcroft-Gault) 75.0 Glucose Level 100 mg/dL (70-99) Calcium Level 8.4 mg/dL (8.5-10.1) Physical Exam HEENT: Neck Supple W Full Motion Chest: Symmetric LUNGS: Clear to Auscultation Heart: S1S2, RRR (SR/SB otheriws no significant ectopies) Abdomen: Soft N/T Extremities: No Edema, No Calf Tenderness Neurology: alert, oriented, follow commands Assessment Assessment 1. Chest pain: Possible vasopasm from cocaine. Peaked trop 0.04. 2. Chronic systolic CHF: compensated 3. Cardiomyopathy: (not new) likely worsened by continued cocaine use 4. Polysubstance abuse: marijuana with daily use of cocaine with last use yesterday. Per review multiple relapse from this. 5. HLP: controlled 6. HTN: better 7. COPD/tobaccoism/KAYLA 8. CAD 9. Asymptomatic Sinus Bradycardia 10. Valvular insufficiency Recommendations 1. Reinforced abstinence from cocaine, with daily use monitor for withdrawal, defer to PCP 2. No BB 3. TTE result pending, preliminary EF at 25-30% 4. Cardiology records pending 5. Continue current HTN regimen 6. MPI tomorrow. Records review from [place] * 10/23/2015 TTE- Mild AR, LV mild dilated, moderate concentric LVH, impaired LV dysfunction, mild global hypokinesis aortic root 3.8 cm * 02/20/2015 TTE- EF 30-35%, LA dilation 66.9 ml/m2, mild MR/AR/TR, proximal ascending aorta 4 cm * 08/07/2008 [facility] cath 60% mid LAD, 40% OM1, 70% distal PDA. No mention of intervention, Will obtain cath report from ALEN POSADA APRN Feb 02, 2017 13:09
--- NOTE | 2017-02-02 14:06 | PDOC ---
PROGRESS NOTES Chief Complaint Chief Complaint Chest pain:unstable angina with Possible vasopasm from cocaine ? Known chronic systolic CHF EF 30% 2 years ago Cardiomyopathy Polysubstance abuse: marijuana with daily use of cocaine with last use yesterday as per card thasassemia HLP accelerated HTN COPD/tobaccoism/KAYLA h/o CAD wo PCI Sinus Bradycardia Valvular insufficiency tobaccoism obesity plan; fu with card, on amlodipine, no BB TTE today, result pending MPI as per card DVT ppx resume most home meds pt denies recent cocaine use x3 weeks, also said taking his meds daily History of Present Illness History of Present Illness mild chest pain today echo done pending Vitals Vitals Vital Signs Date Time Temp Pulse Resp B/P (MAP) Pulse Ox O2 Delivery O2 Flow Rate FiO2 02/02/17 12:09 Room Air 02/02/17 11:00 97.6 67 18 160/95 (116) 97 97.6 Physical Exam General: Alert, Oriented X3, Cooperative Heart: Regular rate (SR/SB), Normal S1, Normal S2, Other (3/6 systolic murmur to LLS border;S4) Lungs: Clear Abdomen: Soft, No tenderness Extremities: No cyanosis, No edema Skin: No breakdown, No significant lesion Labs LABS Laboratory Tests Test 02/02/17 03:20 White Blood Count 5.0 x10^3/uL (4.0-11.0) Red Blood Count 5.58 x10^6/uL (4.30-5.70) Hemoglobin 13.2 g/dL (13.0-17.5) Hematocrit 41.7 % (39.0-53.0) Mean Corpuscular Volume 75 fL (79-100) Mean Corpuscular Hemoglobin 24 pg (25-35) Mean Corpuscular Hemoglobin Concent 32 g/dL (31-37) Red Cell Distribution Width 15.7 % (11.5-14.5) Platelet Count 180 x10^3/uL (140-400) Neutrophils (%) (Auto) 43 % (31-73) Lymphocytes (%) (Auto) 42 % (24-48) Monocytes (%) (Auto) 9 % (0-9) Eosinophils (%) (Auto) 5 % (0-3) Basophils (%) (Auto) 1 % (0-3) Neutrophils # (Auto) 2.1 x10^3uL (1.8-7.7) Lymphocytes # (Auto) 2.1 x10^3/uL (1.0-4.8) Monocytes # (Auto) 0.4 x10^3/uL (0.0-1.1) Eosinophils # (Auto) 0.2 x10^3/uL (0.0-0.7) Basophils # (Auto) 0.1 x10^3/uL (0.0-0.2) Sodium Level 144 mmol/L (136-145) Potassium Level 3.6 mmol/L (3.5-5.1) Chloride Level 108 mmol/L (98-107) Carbon Dioxide Level 30 mmol/L (21-32) Anion Gap 6 (6-14) Blood Urea Nitrogen 19 mg/dL (8-26) Creatinine 1.2 mg/dL (0.7-1.3) Estimated GFR (Cockcroft-Gault) 75.0 Glucose Level 100 mg/dL (70-99) Calcium Level 8.4 mg/dL (8.5-10.1) Review of Systems Review of Systems no fever, chills, sob or chest pain Comment Review of Relevant I have reviewed the following items sadia (where applicable) has been applied. Labs Laboratory Tests Test 01/31/17 17:10 02/01/17 03:40 02/02/17 03:20 White Blood Count 6.3 x10^3/uL (4.0-11.0) 6.0 x10^3/uL (4.0-11.0) 5.0 x10^3/uL (4.0-11.0) Red Blood Count 6.05 x10^6/uL (4.30-5.70) 5.95 x10^6/uL (4.30-5.70) 5.58 x10^6/uL (4.30-5.70) Hemoglobin 14.5 g/dL (13.0-17.5) 14.4 g/dL (13.0-17.5) 13.2 g/dL (13.0-17.5) Hematocrit 44.2 % (39.0-53.0) 43.3 % (39.0-53.0) 41.7 % (39.0-53.0) Mean Corpuscular Volume 73 fL (79-100) 73 fL (79-100) 75 fL (79-100) Mean Corpuscular Hemoglobin 24 pg (25-35) 24 pg (25-35) 24 pg (25-35) Mean Corpuscular Hemoglobin Concent 33 g/dL (31-37) 33 g/dL (31-37) 32 g/dL (31-37) Red Cell Distribution Width 15.4 % (11.5-14.5) 16.0 % (11.5-14.5) 15.7 % (11.5-14.5) Platelet Count 205 x10^3/uL (140-400) 193 x10^3/uL (140-400) 180 x10^3/uL (140-400) Neutrophils (%) (Auto) 53 % (31-73) 41 % (31-73) 43 % (31-73) Lymphocytes (%) (Auto) 34 % (24-48) 45 % (24-48) 42 % (24-48) Monocytes (%) (Auto) 7 % (0-9) 9 % (0-9) 9 % (0-9) Eosinophils (%) (Auto) 4 % (0-3) 5 % (0-3) 5 % (0-3) Basophils (%) (Auto) 1 % (0-3) 1 % (0-3) 1 % (0-3) Neutrophils # (Auto) 3.4 x10^3uL (1.8-7.7) 2.5 x10^3uL (1.8-7.7) 2.1 x10^3uL (1.8-7.7) Lymphocytes # (Auto) 2.2 x10^3/uL (1.0-4.8) 2.7 x10^3/uL (1.0-4.8) 2.1 x10^3/uL (1.0-4.8) Monocytes # (Auto) 0.5 x10^3/uL (0.0-1.1) 0.5 x10^3/uL (0.0-1.1) 0.4 x10^3/uL (0.0-1.1) Eosinophils # (Auto) 0.3 x10^3/uL (0.0-0.7) 0.3 x10^3/uL (0.0-0.7) 0.2 x10^3/uL (0.0-0.7) Basophils # (Auto) 0.1 x10^3/uL (0.0-0.2) 0.1 x10^3/uL (0.0-0.2) 0.1 x10^3/uL (0.0-0.2) Sodium Level 144 mmol/L (136-145) 145 mmol/L (136-145) 144 mmol/L (136-145) Potassium Level 3.5 mmol/L (3.5-5.1) 3.7 mmol/L (3.5-5.1) 3.6 mmol/L (3.5-5.1) Chloride Level 106 mmol/L (98-107) 107 mmol/L (98-107) 108 mmol/L (98-107) Carbon Dioxide Level 29 mmol/L (21-32) 27 mmol/L (21-32) 30 mmol/L (21-32) Anion Gap 9 (6-14) 11 (6-14) 6 (6-14) Blood Urea Nitrogen 15 mg/dL (8-26) 19 mg/dL (8-26) 19 mg/dL (8-26) Creatinine 1.2 mg/dL (0.7-1.3) 1.3 mg/dL (0.7-1.3) 1.2 mg/dL (0.7-1.3) Estimated GFR (Cockcroft-Gault) 75.0 68.4 75.0 Glucose Level 105 mg/dL (70-99) 90 mg/dL (70-99) 100 mg/dL (70-99) Calcium Level 9.2 mg/dL (8.5-10.1) 8.4 mg/dL (8.5-10.1) 8.4 mg/dL (8.5-10.1) Magnesium Level 2.1 mg/dL (1.8-2.4) Troponin I Quantitative < 0.017 ng/mL (0.000-0.055) 0.027 ng/mL (0.000-0.055) Heparin Anti-Xa Act, Unfractionated < 0.10 IU/mL (0.30-0.70) BUN/Creatinine Ratio 15 (6-20) Total Bilirubin 0.3 mg/dL (0.2-1.0) Aspartate Amino Transf (AST/SGOT) 17 U/L (15-37) Alanine Aminotransferase (ALT/SGPT) 17 U/L (16-63) Alkaline Phosphatase 64 U/L (46-116) Total Protein 6.5 g/dL (6.4-8.2) Albumin 3.5 g/dL (3.4-5.0) Albumin/Globulin Ratio 1.2 (1.0-1.7) Triglycerides Level 55 mg/dL (0-150) Cholesterol Level 162 mg/dL (0-200) LDL Cholesterol, Calculated 117 mg/dL (0-100) VLDL Cholesterol, Calculated 11 mg/dL (0-40) Non-HDL Cholesterol Calculated 128 mg/dL (0-129) HDL Cholesterol 34 mg/dL (40-60) Cholesterol/HDL Ratio 4.8 Thyroid Stimulating Hormone (TSH) 2.723 uIU/mL (0.358-3.74) Laboratory Tests Test 02/02/17 03:20 White Blood Count 5.0 x10^3/uL (4.0-11.0) Red Blood Count 5.58 x10^6/uL (4.30-5.70) Hemoglobin 13.2 g/dL (13.0-17.5) Hematocrit 41.7 % (39.0-53.0) Mean Corpuscular Volume 75 fL (79-100) Mean Corpuscular Hemoglobin 24 pg (25-35) Mean Corpuscular Hemoglobin Concent 32 g/dL (31-37) Red Cell Distribution Width 15.7 % (11.5-14.5) Platelet Count 180 x10^3/uL (140-400) Neutrophils (%) (Auto) 43 % (31-73) Lymphocytes (%) (Auto) 42 % (24-48) Monocytes (%) (Auto) 9 % (0-9) Eosinophils (%) (Auto) 5 % (0-3) Basophils (%) (Auto) 1 % (0-3) Neutrophils # (Auto) 2.1 x10^3uL (1.8-7.7) Lymphocytes # (Auto) 2.1 x10^3/uL (1.0-4.8) Monocytes # (Auto) 0.4 x10^3/uL (0.0-1.1) Eosinophils # (Auto) 0.2 x10^3/uL (0.0-0.7) Basophils # (Auto) 0.1 x10^3/uL (0.0-0.2) Sodium Level 144 mmol/L (136-145) Potassium Level 3.6 mmol/L (3.5-5.1) Chloride Level 108 mmol/L (98-107) Carbon Dioxide Level 30 mmol/L (21-32) Anion Gap 6 (6-14) Blood Urea Nitrogen 19 mg/dL (8-26) Creatinine 1.2 mg/dL (0.7-1.3) Estimated GFR (Cockcroft-Gault) 75.0 Glucose Level 100 mg/dL (70-99) Calcium Level 8.4 mg/dL (8.5-10.1) Medications Current Medications Morphine Sulfate 4 mg PRN Q2HR PRN IV PAIN Last administered on 02/01/17 22:24 ; Start 01/31/17 at 16:45 Morphine Sulfate (Morphine Ir) 15 mg Q4HRS PRN PO PAIN Last administered on 12:09; Start 01/31/17 at 16:45 Nitroglycerin (Nitrostat) 0.4 mg PRN Q5MIN PRN SL CHEST PAIN; Start 01/31/17 at 16:45 Famotidine (Pepcid) 20 mg BID PO Last administered on 02/02/17 08:50; Start at 21:00 Aspirin (Tomas Aspirin) 325 mg DAILYWBKFT PO Last administered on 02/02/17 08: 50; Start 02/01/17 at 08:00 Enoxaparin Sodium (Lovenox Per Pharmacy Prophylaxis Dosing) 1 each PRN DAILY PRN MC SEE COMMENTS; Start 01/31/17 at 16:45; Stop 01/31/17 at 19:21; Status DC Ondansetron HCl (Zofran Odt) 4 mg PRN Q8HRS PRN PO NAUSEA/VOMITING; Start 01/31 at 16:45 Enoxaparin Sodium (Lovenox 40mg Syringe) 40 mg Q24H SQ ; Start 02/01/17 at 09:00 ; Stop 02/01/17 at 09:00; Status DC Amlodipine Besylate (Norvasc) 5 mg DAILY PO Last administered on 02/01/17 08: 40; Start 01/31/17 at 19:00; Stop 02/01/17 at 10:25; Status DC Metoprolol Tartrate (Lopressor) 50 mg BID PO Last administered on 01/31/17 21: 13; Start 01/31/17 at 21:00; Stop 02/01/17 at 10:25; Status DC Heparin Sodium/ Dextrose 500 ml @ 0 mls/hr CONT PRN IV SEE I/O RECORD; Start at 17:45; Stop 02/01/17 at 10:50; Status DC Heparin Sodium (Porcine) (Heparin Sodium) 2,700 unit PRN Q6HRS PRN IV FOR UFH LEVEL LESS THAN 0.2 Last administered on 02/01/17 05:18; Start 01/31/17 at 17: 45; Stop 02/01/17 at 10:50; Status DC Info (Anti-Coagulation Monitoring By Pharmacy) 1 each PRN DAILY PRN MC SEE COMMENTS Last administered on 02/01/17 10:12; Start 01/31/17 at 19:30; Stop at 11:04; Status DC Nicotine (Nicoderm Cq 21mg) 1 patch PRN DAILY PRN TD SMOKING CESSATION; Start 01/31/17 at 21:15; Stop 02/01/17 at 13:34; Status DC Nicotine Polacrilex (Nicorette Gum) 1 each PRN Q1HR PRN BC SMOKING CESSATION; Start 01/31/17 at 21:15 Lidocaine (Lidoderm) 1 patch DAILY TD Last administered on 02/01/17 22:24; Start 01/31/17 at 21:30 Potassium Chloride (Klor-Con) 20 meq 1X ONCE PO Last administered on 21:33; Start 01/31/17 at 22:00; Stop 01/31/17 at 22:01; Status DC Amlodipine Besylate (Norvasc) 10 mg DAILY PO Last administered on 02/02/17 08: 53; Start 02/02/17 at 09:00 Isosorbide Mononitrate (Imdur) 30 mg DAILY PO ; Start 02/02/17 at 09:00; Stop at 09:00; Status DC Isosorbide Mononitrate (Imdur) 30 mg DAILY PO Last administered on 02/02/17 08 :52; Start 02/01/17 at 11:06 Acetaminophen (Tylenol) 650 mg PRN Q6HRS PRN PO FEVER Last administered on 02/01 13:30; Start 02/01/17 at 13:00 Ondansetron HCl (Zofran) 4 mg PRN Q6HRS PRN IV NAUSEA/VOMITING; Start 02/01/17 at 13:00 Morphine Sulfate 2 mg PRN Q2HR PRN IV PAIN; Start 02/01/17 at 13:00 Tramadol HCl (Ultram) 50 mg PRN Q6HRS PRN PO PAIN Last administered on 12:08; Start 02/01/17 at 13:00 Hydralazine HCl (Apresoline) 10 mg PRN Q4HRS PRN IVP ELEVATED BP, SEE COMMENTS ; Start 02/01/17 at 13:00 Docusate Sodium (Colace) 100 mg PRN DAILY PRN PO CONSTIPATION; Start 02/01/17 at 13:00 Nicotine (Nicoderm Cq 21mg) 1 patch DAILY TD Last administered on 02/01/17 22: 23; Start 02/01/17 at 14:00 Amlodipine Besylate (Norvasc) 5 mg 1X ONCE PO Last administered on 02/01/17 14:04; Start 02/01/17 at 14:00; Stop 02/01/17 at 14:01; Status DC Atorvastatin Calcium (Lipitor) 20 mg QHS PO Last administered on 02/01/17 22: 24; Start 02/01/17 at 21:00 Losartan Potassium (Cozaar) 50 mg DAILY PO Last administered on 02/02/17 08:50 ; Start 02/01/17 at 14:00 Levothyroxine Sodium (Synthroid) 100 mcg DAILY07 PO Last administered on 11:31; Start 02/02/17 at 11:00 Active Scripts Active Reported Calcium Carbonate 500 Mg Tablet 500 Mg PO TIDWMEALS Potassium Chloride 20 Meq Tablet.er 20 Meq PO DAILY NICODERM CQ 14mg (Nicotine) 1 Each Patch.td24 1 Patch TP DAILY Nicotine Lozenge (Nicotine Polacrilex) 2 Mg Lozenge 2 Mg BC PRN Q1HR PRN Multi-Day Vitamins (Multivitamin) 1 Each Tablet 1 Tab PO DAILY Simvastatin 40 Mg Tablet 0.5 Tab PO QHS Viagra (Sildenafil Citrate) 100 Mg Tablet 100 Mg PO ONCE One tablet as directed by mouth as needed for erectile dysfuntion. One hour before sexual encounter. No more than 1 dose per day. No more than 4 doses in 30 days. Senokot (Sennosides) 8.6 Mg Tablet 8.6 Mg PO PRN PRN Risperidone 2 Mg Tablet 1 Tab PO QHS half tablet to 1 tablet at HS, alternating days Polyethylene Glycol 3350 255 Gm Powder 17 Gm PO DAILY Metoprolol Succinate ( Xl ) (Metoprolol Succinate) 200 Mg Tab.er.24h 1 Tab PO DAILY Robaxin (Methocarbamol) 500 Mg Tablet 1 Tab PO PRN TID PRN Lidocaine-Prilocaine Cream (Lidocaine/Prilocaine) 30 Gm Cream..g. 1 Lolis TP TID PRN Levothyroxine Sodium 100 Mcg Tablet 1 Tab PO DAILY Ibuprofen 600 Mg Tablet 600 Mg PO PRN TID PRN Hydrochlorothiazide Tablet (Hydrochlorothiazide) 25 Mg Tablet 1 Tab PO DAILY Furosemide 40 Mg Tablet 1 Tab PO DAILY Docusate Sodium 100 Mg Capsule 1 Cap PO DAILY Cetirizine Hcl 10 Mg Tablet 1 Tab PO DAILY Symbicort 160-4.5 Mcg Inhaler (Budesonide/Formoterol Fumarate) 10.2 Gm Hfa.aer.ad 2 Puff IH BID Amlodipine Besylate 10 Mg Tablet 10 Mg PO DAILY Allopurinol 100 Mg Tablet 2 Tab PO DAILY Vitals/I & O Vital Sign - Last 24 Hours 02/01/17 02/01/17 02/01/17 02/01/17 15:00 17:28 18:48 19:25 Temp 98.9 98.0 98.9 98.0 Pulse 68 77 Resp 16 B/P (MAP) 134/80 (98) 106/69 (81) Pulse Ox 96 97 O2 Delivery Room Air Room Air Room Air Room Air 02/01/17 02/01/17 02/01/17 02/02/17 20:30 22:24 23:30 03:20 Temp 97.9 98.3 97.9 98.3 Pulse 83 64 Resp 12 15 B/P (MAP) 125/74 (91) 148/92 (110) Pulse Ox 96 95 O2 Delivery Room Air Room Air Room Air Room Air 02/02/17 02/02/17 02/02/17 02/02/17 07:02 08:05 08:50 08:52 Temp 98.0 98.0 Pulse 72 72 72 Resp 16 B/P (MAP) 143/96 (112) 143/96 143/96 Pulse Ox 96 O2 Delivery Room Air Room Air 02/02/17 02/02/17 02/02/17 02/02/17 08:53 11:00 12:08 12:09 Temp 97.6 97.6 Pulse 72 67 Resp 18 B/P (MAP) 143/96 160/95 (116) Pulse Ox 97 O2 Delivery Room Air Room Air Room Air Intake and Output 02/01/17 02/01/17 02/02/17 15:00 23:00 07:00 Intake Total 30 ml 480 ml 100 ml Balance 30 ml 480 ml 100 ml CARINA GARZA MD Feb 02, 2017 14:06
[2017-02-02 15:00] VITALS: BP 137/87
--- NOTE | 2017-02-02 15:27 | CARD ---
APPROVED REPORT EXAM: Two-dimensional and M-mode echocardiogram with Doppler and color Doppler. Other Information Quality : Average Rhythm : NSR INDICATION Chest Pain 2D DIMENSIONS RVDd3.1 (2.9-3.5cm)Left Atrium(2D)3.7 (1.6-4.0cm) IVSd1.6 (0.7-1.1cm)Aortic Root(2D)3.3 (2.0-3.7cm) LVDd5.9 (3.9-5.9cm)LVOT Diameter2.2 (1.8-2.4cm) PWd1.6 (0.7-1.1cm)LVDs5.1 (2.5-4.0cm) FS (%) 13.4 %SV48.2 ml Aortic Valve AoV Peak Marcial.83.6cm/sAoV VTI15.5cm AO Peak GR.2.8mmHgLVOT Peak Marcial.75.9cm/s LVOT VTI 15.61cmAO Mean GR.2mmHg JOAQUIM (VMAX)3.80qk5WXF (VTI)3.92cm2 AI P 1/2 [id number] Mitral Valve MV E Uwaaanel38.0cm/sMV DECEL [id number] MV A Yxkedlfw23.0cm/sMV JKO90wk E/A Ratio0.5MV A Kbovhnom27zz MVA (PHT)2.32cm2 TDI E/Lateral E'8.4E/Medial E'8.9 Pulmonary Valve PV Peak Uidjtxhn89.5cm/sPV Peak Grad.3mmHg RVOT VTI10.4cm Tricuspid Valve TR P. Mspbqvrg983ef/sRAP ONFDMMUT1ltEz TR Peak Gr.79zhGdRQBH20xmQi Pulmonary Vein S1 Lhkgtdpi16.5cm/sD2 Qtydwnfp20.0cm/s LEFT VENTRICLE The left ventricle is normal size. There is mild to moderate concentric left ventricular hypertrophy. Left ventricle systolic function is severely impaired. The Ejection Fraction is 25-30%. There is memo bal hypokinesis of the left ventricle. Tissue Doppler imaging reveals moderate left ventricular diast olic dysfunction. There is no ventricular septal defect visualized. RIGHT VENTRICLE The right ventricle is normal size. The right ventricular systolic function is normal. ATRIA The left atrium size is normal. The right atrium size is normal. The interatrial septum is intact wit h no evidence for an atrial septal defect or patent foramen ovale as noted on 2-D or Doppler imaging. AORTIC VALVE The aortic valve is normal in structure. Doppler and Color Flow revealed mild aortic regurgitation. T here is no significant aortic valvular stenosis. MITRAL VALVE The mitral valve is normal in structure. There is no mitral valve stenosis. Doppler and Color Flow re vealed mild mitral regurgitation. TRICUSPID VALVE The tricuspid valve is normal in structure and function. Doppler and Color Flow revealed trace tricus pid regurgitation. The PA pressure was estimated at 20 mmHg. There is no tricuspid valve stenosis. PULMONIC VALVE The pulmonic valve is not well visualized. Doppler and Color Flow revealed trivial pulmonic valvular regurgitation. There is no pulmonic valvular stenosis. GREAT VESSELS The aortic root is normal in size. The ascending aorta is miildly dilated. Normal pulmonary venous fl ow (Doppler). The IVC is normal in size and collapses >50% with inspiration. PERICARDIAL EFFUSION There is no evidence of significant pericardial effusion. Critical Notification Date: 02/01/2017 Time: 10:16 Other Discipline : Mady [place] APRN Critical Value: Yes <Conclusion> The left ventricle is normal size. Left ventricle systolic function is severely impaired. The Ejection Fraction is 25-30%. There is mild to moderate concentric left ventricular hypertrophy. There is global hypokinesis of the left ventricle. There is no significant aortic valvular stenosis. Doppler and Color Flow revealed mild aortic regurgitation. Doppler and Color Flow revealed mild mitral regurgitation. Doppler and Color Flow revealed trace tricuspid regurgitation. The PA pressure was estimated at 20 mmHg.
[2017-02-02] MEDS ORDERED: ALBUTEROL SULFATE 2.5 MG/3 ML NEBU. NEB PRN (18:00)
[2017-02-02 19:15] VITALS: BP 137/81
[2017-02-02] MEDS: ATORVASTATIN CALCIUM 20 MG TABLET PO SCH (20:27)
[2017-02-02 23:20] VITALS: BP 140/84
[2017-02-03 03:25] VITALS: BP 140/90
[2017-02-03 06:10] LABS: BASO % 1 % (0-3); EOS % 5 % (0-3); HEMATOCRIT 40.1 % (39.0-53.0); HEMOGLOBIN 13.3 g/dL (13.0-17.5); LYMPH # 1.6 x10^3/uL (1.0-4.8); LYMPH % 37 % (24-48); MEAN CORPUSCULAR HEMOGLOBIN 24 pg (25-35); MEAN CORPUSCULAR HGB CONC 33 g/dL (31-37); MEAN CORPUSCULAR VOLUME 74 fL (79-100); MONO % 10 % (0-9); NEUT % 47 % (31-73); PLATELET COUNT 176 x10^3/uL (140-400); RED BLOOD COUNT 5.44 x10^6/uL (4.30-5.70); RED CELL DISTRIBUTION WIDTH 15.7 % (11.5-14.5); WHITE BLOOD COUNT 4.4 x10^3/uL (4.0-11.0)
[2017-02-03 06:31] LABS: CALCIUM 8.2 mg/dL (8.5-10.1); CREATININE 1.3 mg/dL (0.7-1.3); GFR 68.4; POTASSIUM 3.8 mmol/L (3.5-5.1)
[2017-02-03 07:00] VITALS: BP 151/98
[2017-02-03] MEDS: LEVOTHYROXINE 100 MCG TABLET PO SCH (07:27)
[2017-02-03] MEDS ORDERED: REGADENOSON 0.4 MG/5 ML DISP.SYRIN. IV ONE (09:00)
[2017-02-03] MEDS: FAMOTIDINE 20 MG TABLET. PO SCH (09:37)
[2017-02-03] MEDS: ASPIRIN 325 MG TABLET PO SCH (09:37)
[2017-02-03] MEDS: amLODIPine BESYLATE 5 MG TABLET PO SCH (09:38)
[2017-02-03] MEDS: ISOSORBIDE MONONITRATE ER 30 MG TAB.ER.24H PO SCH (09:39)
[2017-02-03] MEDS: LOSARTAN POTASSIUM 50 MG TABLET. PO SCH (09:39)
[2017-02-03] MEDS: NICOTINE 21MG PATCH. TD SCH (09:40)
[2017-02-03] MEDS: LIDOCAINE (700MG/PATCH) PATCH. TD SCH (09:43)
[2017-02-03 11:00] VITALS: BP 143/89
--- NOTE | 2017-02-03 11:27 | PDOC ---
CARDIO Progress Notes Date and Time Date of Service 02/03/2017 Time of Evaluation 1110 Subjective Subjective: No Chest Pain, No shortness of breath, No Palpitations, No Dizziness Vitals Vitals Vital Signs Date Time Temp Pulse Resp B/P (MAP) Pulse Ox O2 Delivery O2 Flow Rate FiO2 02/03/17 09:39 71 151/98 02/03/17 08:00 Room Air 02/03/17 07:00 98.2 18 97 98.2 Weight Weight [ ] Input and Output Intake and Output Intake and Output 02/03/17 07:00 Intake Total 1450 ml Output Total 0 ml Balance 1450 ml Intake Oral 1450 ml Output Urine Total 0 ml # Voids 6 Laboratory Labs Laboratory Tests Test 02/03/17 04:15 White Blood Count 4.4 x10^3/uL (4.0-11.0) Red Blood Count 5.44 x10^6/uL (4.30-5.70) Hemoglobin 13.3 g/dL (13.0-17.5) Hematocrit 40.1 % (39.0-53.0) Mean Corpuscular Volume 74 fL (79-100) Mean Corpuscular Hemoglobin 24 pg (25-35) Mean Corpuscular Hemoglobin Concent 33 g/dL (31-37) Red Cell Distribution Width 15.7 % (11.5-14.5) Platelet Count 176 x10^3/uL (140-400) Neutrophils (%) (Auto) 47 % (31-73) Lymphocytes (%) (Auto) 37 % (24-48) Monocytes (%) (Auto) 10 % (0-9) Eosinophils (%) (Auto) 5 % (0-3) Basophils (%) (Auto) 1 % (0-3) Neutrophils # (Auto) 2.1 x10^3uL (1.8-7.7) Lymphocytes # (Auto) 1.6 x10^3/uL (1.0-4.8) Monocytes # (Auto) 0.4 x10^3/uL (0.0-1.1) Eosinophils # (Auto) 0.2 x10^3/uL (0.0-0.7) Basophils # (Auto) 0.0 x10^3/uL (0.0-0.2) Sodium Level 145 mmol/L (136-145) Potassium Level 3.8 mmol/L (3.5-5.1) Chloride Level 109 mmol/L (98-107) Carbon Dioxide Level 29 mmol/L (21-32) Anion Gap 7 (6-14) Blood Urea Nitrogen 16 mg/dL (8-26) Creatinine 1.3 mg/dL (0.7-1.3) Estimated GFR (Cockcroft-Gault) 68.4 Glucose Level 85 mg/dL (70-99) Calcium Level 8.2 mg/dL (8.5-10.1) Physical Exam HEENT: Neck Supple W Full Motion Chest: Symmetric LUNGS: Clear to Auscultation Heart: S1S2, RRR (SR/SB otheriws no significant ectopies) Abdomen: Soft N/T Extremities: No Edema, No Calf Tenderness Neurology: alert, oriented, follow commands Assessment Assessment 1. Chest pain: Possible vasopasm from cocaine. Peaked trop 0.04. No further bradycardia episodes overnight 2. Chronic systolic CHF: compensated 3. Cardiomyopathy: (not new) likely worsened by continued cocaine use. presently EF 25-30% 4. Polysubstance abuse: marijuana with daily use of cocaine with last use yesterday. Per review multiple relapse from this. 5. HLP: controlled 6. HTN: better 7. COPD/tobaccoism/KAYLA 8. CAD: 08/07/2008 [facility] cath 60% mid LAD, 40% OM1, 70% distal PDA. No mention of intervention 9. Valvular insufficiency Recommendations 1. Again reinforced abstinence from cocaine 2. Will need BB but unable to with cocaine use with notable multiple relapse in the past 3. MPI completion today. If unremarkable pt will need to f/u with [facility] in the next 2-4 weeks. 4. Continue current HTN regimen, increase losartan 5. Statin, ASA 6. Smoking cessation 7. Difficult for consideration of AICD due to polysubstance abuse and noncompliance hx. Will defer to [facility] ALEN ALBRECHT DRYWALL APPLICATOR Feb 03, 2017 11:27
[2017-02-03] MEDS ORDERED: LOSA50TA2 PO (14:36)
[2017-02-03] MEDS ORDERED: ASPI325T8 PO (14:36)
[2017-02-03] MEDS ORDERED: ATOR20TA58 PO (14:36)
--- NOTE | 2017-02-03 14:46 | PDOC3 ---
Discharge Summary [facility] Date of Admission: Jan 31, 2017 Discharge Date: Feb 03, 2017 Admitting Diagnosis Chest pain:unstable angina with Possible vasopasm from cocaine Known chronic systolic CHF EF 30% 2 years ago, now 25-30% Cardiomyopathy Polysubstance abuse: marijuana with daily use of cocaine with last use yesterday as per card thasassemia HLP accelerated HTN COPD/tobaccoism/KAYLA h/o CAD wo PCI Sinus Bradycardia Valvular insufficiency tobaccoism obesity Problems: CONSULTS card Brief Hospital Course Mr. Paniagua is a 57 old m , h/o chf ef 30%, comes for chest pain. possible cocaine use , altho pt said not taking drugs for 3 weeks, [facility] didnot check urine drug tho. Pt said he has been taking daily meds. pt has mild chest pain on 2nd day, Echo showed EF 25-30%. will do MPI today, dc home if neg. dc time 35min. see new meds in med rec. General: Alert, Oriented X3, Cooperative Heart: Regular rate (SR/SB), Normal S1, Normal S2, Other (3/6 systolic murmur to LLS border;S4) Lungs: Clear Abdomen: Soft, No tenderness Extremities: No cyanosis, No edema Skin: No breakdown, No significant lesion Problems: Disposition home CONDITION AT DISCHARGE: Improved Diet cardiac Scheduled Allopurinol (Allopurinol), 2 TAB PO DAILY, (Reported) Amlodipine Besylate (Amlodipine Besylate), 10 MG PO DAILY, (Reported) Aspirin (Aspirin), 325 MG PO DAILYWBKFT Atorvastatin Calcium (Atorvastatin Calcium), 20 MG PO QHS Budesonide/Formoterol Fumarate (Symbicort 160-4.5 Mcg Inhaler), 2 PUFF IH BID, ( Reported) Calcium Carbonate (Calcium Carbonate), 500 MG PO TIDWMEALS, (Reported) Cetirizine Hcl (Cetirizine Hcl), 1 TAB PO DAILY, (Reported) Docusate Sodium (Docusate Sodium), 1 CAP PO DAILY, (Reported) Furosemide (Furosemide), 1 TAB PO DAILY, (Reported) Hydrochlorothiazide (Hydrochlorothiazide Tablet ), 1 TAB PO DAILY, (Reported) Levothyroxine Sodium (Levothyroxine Sodium), 1 TAB PO DAILY, (Reported) Lidocaine/Prilocaine (Lidocaine-Prilocaine Cream), 1 YOLANDA TP TID PRN, (Reported) Losartan Potassium (Cozaar), 50 MG PO DAILY Multivitamin (Multi-Day Vitamins), 1 TAB PO DAILY, (Reported) Nicotine (NICODERM CQ 14mg), 1 PATCH TP DAILY, (Reported) Polyethylene Glycol 3350 (Polyethylene Glycol 3350), 17 GM PO DAILY, (Reported) Potassium Chloride (Potassium Chloride), 20 MEQ PO DAILY, (Reported) Risperidone (Risperidone), 1 TAB PO QHS, (Reported) Scheduled PRN Methocarbamol (Robaxin), 1 TAB PO PRN TID PRN for MUSCLE SPASMS, (Reported) Nicotine Polacrilex (Nicotine Lozenge), 2 MG BC PRN Q1HR PRN for SMOKING CESSATION, (Reported) Sennosides (Senokot), 8.6 MG PO PRN PRN for CONSTIPATION, (Reported) Discontinued Medications Ibuprofen (Ibuprofen), 600 MG PO PRN TID PRN for INFLAMMATION, (Reported) Metoprolol Succinate (Metoprolol Succinate ( Xl )), 1 TAB PO DAILY, (Reported) Sildenafil Citrate (Viagra), 100 MG PO ONCE, (Reported) Simvastatin (Simvastatin), 0.5 TAB PO QHS, (Reported) Follow Up casrd in 2 weeks CARINA GARZA MD Feb 03, 2017 14:46
[2017-02-03 15:00] VITALS: BP 152/113
[2017-02-03] MEDS: traMADol 50 MG TABLET PO PRN (15:58)
--- NOTE | 2017-02-03 17:22 | RAD ---
APPROVED REPORT Test Type: Pharmacological Stress Nurse/Tech: Micaela Oquendo R.N. Test Indications: Chest pain, elevated troponin Cardiac History: Possible MA Medications: SEE EMR Medical History: SEE EMR Resting ECG: SR with inverted Twave Resting Heart Rate: 72 bpm Resting Blood Pressure: 130/85mmHg Pretest Chest Pain: No chest pain Nurse/Tech Notes S1S2, lungs CTA, murmur, denied chest pain, SOA and dizziness. Consent: The procedure was explained to the patient in lay terms. Informed consent was witnessed. Varinder eout was entered into [employer]. History and Stress Test performed by Micaela Oquendo R.N. Pharm. Details Pharmacologic stress testing was performed using 0.4mg per 5ml of regadenoson given intravenously ove r 7-10 seconds. Stress Symptoms Slightly SOA. POST EXERCISE Reason for Termination: Reached target heart rate, Infusion complete Max HR: 98 bpm Max Blood Pressure: 141/74mmHg Blood Pressure response to exercise: Normal blood pressure response during stress. Heart Rate response to exercise: Normal Chest Pain: No. Arrhythmia: Yes. PVC's ST Change: No. INTERPRETATION Stress EKG Conclusion: The resting EKG shows a sinus rhythm with diffuse nonspecific ST-T wave change s. The stress EKG shows no significant changes from baseline. Abnormal resting EKG but no EKG evidence of stress-induced ischemia. Imaging Protocol IMAGE PROTOCOL: Rest Tc-99m/stress Tc-99m 1 day Rest: Stress: Viability: Radiopharm.Tc99m PmlkposhbBx05t Sestamibi Eyab19rGn 34mCi Duration 15min. 10min. Img Date 02/03/2017 02/03/2017 Inj-Img [id number]. 60min. Rest Admin Site:IV - Right AntecubitalAdministrator:MAURA Nogueira, ARRT (R)(N) Stress Admin Site: IV - Right AntecubitalAdministrator: MAURA Nogueira, ARRT (R)(N) STRESS DATA End Diast. Vol.247.0mlAv. Heart Rate85.0bpm End Syst. Vol.144.0mlCO Index BSA0.0L/min Myocardial Ebdo005.0gEject. Xlutmsck75.0% Stress Rates Pk. Fill Rate2.24EDV/secLVtime Pk. Fill 197.40msec Pk. Empty Rate2.11ESV/secLVtime Pk. Setdf253.04msec 1/3 Pk. Fill0.68EDV/sec Stress Scores Regional WT2.00Summed WT30.00 Regional WM0.00Summed WM13.00 LV Perfusion The stress scans show a small apical defect. The rest scans show a moderate to small apical defect. Nuclear imaging shows an fixed apical defect consistent with a possible prior infarct. No significant reversible ischemia is present. Wall Motion Left ventricle shows mild global hypokinesis with an ejection fraction of 42%. LV Perf. Quant 17 Seg. SSS4.00 17 Seg. SRS7.00 17 Seg. SDS0.00 Stress Defect Extent (% LAD)7.50Rest Defect Extent (% LAD)12.50Rev. Defect Extent (% LAD)0.00 Stress Defect Extent (% LCX) 0.00Rest Defect Extent (% LCX)8.80Rev. Defect Extent (% LCX)0.00 Stress Defect Extent (% RCA)11.10Rest Defect Extent (% RCA)10.00Rev. Defect Extent (% RCA)1.10 Stress Defect Extent (% ANTONIO)6.50Rest Defect Extent (% ANTONIO)15.00Rev. Defect Extent (% ANTONIO)0.20 Conclusion 1. Abnormal baseline EKG but no EKG evidence of stress-induced ischemia. 2. Nuclear imaging shows no significant reversible ischemia. 3. Nuclear imaging shows a fixed apical defect suggestive of a prior infarct. 4. Left ventricular systolic function shows mild global hypokinesis with an ejection fraction of 42%. 5. Moderately low risk nuclear stress test with no reversible ischemia but mildly decreased global LV function with an ejection fraction at 42%.
[2017-02-03 17:51] VITALS: BP 168/99
== END 2017-02-03 18:29 | disposition home or self-care (01) | DRG 917 ==
LOC: 2 NORTH 15:00
PROVIDERS: ADMIT Internal Medicine; ATTEND Internal Medicine
DX: T40.5X1A Poisoning by cocaine, accidental (unintentional), initial encounter (principal); I50.23 Acute on chronic systolic (congestive) heart failure; I42.9 Cardiomyopathy, unspecified; I25.111 Atherosclerotic heart disease of native coronary artery with angina pectoris with documented spasm; E78.5 Hyperlipidemia, unspecified; E03.9 Hypothyroidism, unspecified; F17.210 Nicotine dependence, cigarettes, uncomplicated; I11.0 Hypertensive heart disease with heart failure; G47.33 Obstructive sleep apnea (adult) (pediatric); F43.10 Post-traumatic stress disorder, unspecified; J44.9 Chronic obstructive pulmonary disease, unspecified; K21.9 Gastro-esophageal reflux disease without esophagitis; M94.0 Chondrocostal junction syndrome [Tietze]; K58.9 Irritable bowel syndrome, unspecified; D56.9 Thalassemia, unspecified; E66.9 Obesity, unspecified; F14.10 Cocaine abuse, uncomplicated; F12.10 Cannabis abuse, uncomplicated; Z96.641 Presence of right artificial hip joint; D75.1 Secondary polycythemia; F32.9 Major depressive disorder, single episode, unspecified; F41.9 Anxiety disorder, unspecified; R00.1 Bradycardia, unspecified; K64.9 Unspecified hemorrhoids; Z88.8 Allergy status to other drugs, medicaments and biological substances; Z82.49 Family history of ischemic heart disease and other diseases of the circulatory system; Z82.5 Family history of asthma and other chronic lower respiratory diseases; Z86.73 Personal history of transient ischemic attack (TIA), and cerebral infarction without residual deficits; Z68.33 Body mass index [BMI] 33.0-33.9, adult; Z79.899 Other long term (current) drug therapy; Z79.1 Long term (current) use of non-steroidal anti-inflammatories (NSAID); Z79.82 Long term (current) use of aspirin
CPT/HCPCS: 36415; 78452; 80048; 80053; 80061; 83735; 84443; 84484; 85027; 85520; 93005; 93017; 93306; 94250; 94640; 94760; 96374; 96375; 96376; 99406; A9500; J1644; J2270; J2785; J7613